=== PATIENT | female | born 1960 | race Caucasian/White ===

== ENCOUNTER 2020-06-21 09:27 | Outpatient (REF) | payer OTHER, SELFPAY | END 2020-06-21 09:28 | disposition home or self-care (01) | LOC: HO.LAB 09:27 | PROVIDERS: PCP Internal Medicine; Visit Provider Internal Medicine | DX: Z20.828 Contact with and (suspected) exposure to other viral communicable diseases (principal) | CPT/HCPCS: C9803; U0003 ==

== ENCOUNTER 2025-02-27 12:47 | Outpatient (AMB) | payer OTHER, SELFPAY ==
--- NOTE | 2025-02-27 12:54 | MHC.OFFVIS ---
Intake Visit Reasons: Follow up Allergies No Known Allergies Allergy (Unverified 03/29/20 17:32) HPI Comments Details: 64 y/o woman with bipolar do, depression, anxiety, HANNA On CPAP, and hypothyroidism who was here for left blepharaspasm. [facility] Medical History (Updated 02/27/25 @ 12:55 by Osvaldo Uribe MD) Blepharospasm Obesity Bipolar disorder HANNA on CPAP MCI (mild cognitive impairment) Assessment & Plan Assessment & Plan (1) Blepharospasm: Code(s): G24.5 - Blepharospasm Category: Medical Plan Impression: Left blepharospasm. Due to just on one side, MRI is ordered to r/o any focal etiology Rec: a: MRI brain to r/o left facial neuropathy b: Botox treatment Orders: Orders MR head/brain wo/w con Today G24.5 - Blepharospasm Medications: New onabotulinumtoxinA (cosmetic) (Botox Cosmetic) 50 units intramuscularly every 3 months; 1 ea 3RF Coding Level of Care Code Est Pt Level 4 (95215) Diagnoses Blepharospasm G24.5
--- OUTSIDE RECORDS SUMMARY | 2025-02-27 13:41 | XMS_ITS | Clinical Summary ---
Author Organization [facility] Address [address] [place] [address] Phone Care Team Providers Care Truck Headlight Assembler Name Role Phone Unavailable Primary Care Provider Unavailabl e Social History Tobacco Use Types Packs/Day Years Used Date Smoking Tobacco: Never Assessed Comments Unknown Sex and Gender Information Value Date Recorded Sex Assigned at Not on file Legal Sex Female 9:48 PM EDT Gender Identity Not on file Sexual Orientation Not on file Plan of Treatment Not on file Medical Devices Not on file Additional Source Comments The information contained in this document represents components of the legal health record. It is not the complete legal health record.[facility]
--- OUTSIDE RECORDS SUMMARY | 2025-02-27 13:41 | XMS_ITS ---
Author Name [facility] Organization Unknown Care Team Organization Name Specialty Phone Email Start Date End Da te [facility]ette [facility] 05/20/2022 02/29/2024
== END 2025-02-27 13:18 | disposition home or self-care (01) ==
LOC: HO.HSM 12:48
PROVIDERS: PCP Internal Medicine; Visit Provider Psychiatry & Neurology Neurology
DX: G24.5 Blepharospasm (principal)
CPT/HCPCS: 99214

== ENCOUNTER → 2025-03-10 10:38 | Outpatient (BNV) | payer OTHER, SELFPAY | PROVIDERS: Visit Provider Radiology Vascular & Interventional Radiology | DX: G24.5 Blepharospasm (principal) | CPT/HCPCS: 70553 ==

== ENCOUNTER 2025-03-10 10:50 | Outpatient (REF) | payer OTHER, SELFPAY ==
--- NOTE | ~2025-03-10 | MR_ITS ---
CLINICAL HISTORY: G24.5 - Blepharospasm --- Additional Notes or Special Instructions: r o left facial neuropathy MR Brain with and without gadolinium. High-resolution thin slice imaging performed through the IAC's and pituitary. Comparison: None provided Findings: No restricted diffusion. No intra-axial mass or hemorrhage. No midline shift. No hydrocephalus. Vascular flow voids are intact. There is no abnormal postcontrast enhancement. No cerebellopontine angle mass. No definite pituitary lesion. The infundibulum is midline. The orbits are normal. The sinuses and mastoid air cells are clear. No focal bone lesion. IMPRESSION: No acute findings. This document has been electronically signed by: Russell Fuentes MD on 03/11/2025 10:38:58
--- OUTSIDE RECORDS SUMMARY | 2025-03-10 11:30 | XMS_ITS | Clinical Summary ---
Author Organization [facility] Address [address] [place] [address] Phone Care Team Providers Care Taxi Driver Supervisor Name Role Phone Unavailable Primary Care Provider [...] It is not the complete legal health record.[facility]
== END 2025-03-10 10:51 | disposition home or self-care (01) ==
LOC: HO.MRI 10:50
PROVIDERS: Visit Provider Psychiatry & Neurology Neurology
DX: G24.5 Blepharospasm (principal)
CPT/HCPCS: 70553; A9585

== ENCOUNTER 2025-03-23 15:41 | Outpatient (AMB) | payer OTHER, SELFPAY ==
--- NOTE | 2025-03-23 16:04 | MHC.OFFVIS ---
Intake Visit Reasons: blepharospasm Allergies lurasidone (From Latuda) Adverse Reaction (Verified 03/20/25 12:24) Insomnia HPI Comments Details: 64 y/o woman with bipolar do, depression, anxiety, HANNA On CPAP, and hypothyroidism who was here for left blepharaspasm. She was here for Botox treatment. [facility] Medical History (Updated 03/27/25 @ 08:25 by Jillian Crowder MD) Diverticula of intestine Trigger finger High cholesterol Type II diabetes mellitus Teresa thyroiditis Blepharospasm Obesity Bipolar disorder HANNA on CPAP MCI (mild cognitive impairment) Surgical History (Updated 03/20/25 @ 11:48 by Farideh Felder RN) H/O foot surgery Hx of cholecystectomy Social History Household Members: Other Household Members Other:: Former Spouse Patient Tobacco Use Status: Never used Tobacco Do you have thoughts of harming others: None Physical Exam Neuro Other: Moderate left-sided facial and blepharospasm was noted. Office Procedures Botulinum toxin Injection Additional procedure code (CPT) needed (Blepharospasm) Office Meds onabotulinumtoxinA 200 unit solution for injection Performing Provider: Osvaldo Uribe MD Performing Location: [facility] Neurology and Sleep-Hol Administered by: Osvaldo Uribe MD on 03/27/25 16:18 Dose Route Admin Location Dispensed Lot Number Expiration Date [facility] [employer] Machine Operator 200 unit IM 200 units [id number] [employer]OTOX Total Dispensed Waste 200 units 0 % Assessment & Plan Assessment & Plan (1) Blepharospasm: Code(s): G24.5 - Blepharospasm Category: Medical Plan Impression: blepharospasm responsive to Botox treatment Recommendations: Botox treatment was done as per protocol Orders: Orders AMB Botulinum toxin Injection - Patient Supplied N/C 03/23/25 G24.5 - Blepharospasm Medications: Discontinued onabotulinumtoxinA (Botox) Discontinued Reason: Doctor's Order 100 units intramuscularly every 3 m; 1 ea 3RF Coding Level of Care Code Est Pt Level 3 (18121) Diagnoses Blepharospasm G24.5
--- OUTSIDE RECORDS SUMMARY | 2025-03-23 18:46 | XMS_ITS | Clinical Summary ---
Author Organization [facility] Address [address] [place] [address] Phone Care Team Providers Care Environmental Services Coordinator Name Role Phone Unavailable Primary Care Provider [...] It is not the complete legal health record.[facility]
== END 2025-03-23 16:31 | disposition home or self-care (01) ==
LOC: HO.HSM 15:42
PROVIDERS: PCP Internal Medicine; Visit Provider Psychiatry & Neurology Neurology
DX: G24.5 Blepharospasm (principal)

== ENCOUNTER → 2025-03-23 15:41 | Outpatient (BNVA) | payer OTHER, SELFPAY | PROVIDERS: PCP Internal Medicine; Visit Provider Psychiatry & Neurology Neurology | DX: G24.5 Blepharospasm (principal) | CPT/HCPCS: J0585 ==

== ENCOUNTER 2025-04-03 09:15 | Outpatient (RCR) | payer OTHER, SELFPAY ==
[2025-03-20 11:51] VITALS: BMI 34.3
[2025-03-20 11:52] VITALS: BP 100/68; PULSE 80; TEMP 37.3
--- NOTE | 2025-03-20 14:58 | PC.ADMIT ---
Patient is a 64 year old female who was referred to [facility] by her psychiatric provider secondary to increased depression and anxiety sxs. Patient is taking a leave of absence from work to work on her mental health. Patient reports stresses including work stresses and her ex whom she lives with who has been dx with [place]'s disease and dementia who she is taking care of. She stated while she is in [facility] she has health care providers coming to her home to take care of her ex. Supports include, My daughter, son, and Ryan helps once in a while I just started with a therapist last Thursday. Patient reports recent dx of Type II diabetes and is taking Metformin. Stated she checks BS every morning and they run anywhere from 90-110. Patient is alert and oriented x4. She is calm and cooperative. She presented with depressed mood and anxious affect. She denied SI, no HI. She was given a copy of her safety plan if needed. Medications updated with patient and patient's pharmacy. She reports taking medications as prescribed. Patient stated she was taken off Latuda as she was experiencing insomnia while on the medication and was put back on Olanzapine.
--- NOTE | 2025-03-22 15:54 | HO.PS.ADMBH ---
HPI Date of Service: 03/20/25 Chief Complaint: bipolar II Sources of Information: patient interviewed, chart reviewed and crisis/core team assessment reviewed HPI Narrative: Patient is , employed 64 yo female with history of Bipolar Disorder, DM2, HLD, Teresa thyroiditis, who was referred to [facility] by her outpatient psychiatrist for worsening mood, severe anxiety, panic attacks, low energy, poor sleep. She lives with her ex- and works as his personal development mentor who suffers from Abimael's dementia, which she notes is one of her primary stressors. She is also employed as a Behavioral resource tech at [employer] and is currently on leave.. She has been maintained on combination of citalopram, Wellbutrin, Zyprexa since 2006 when she was diagnosed with Bipolar II disorder. . Past Psychiatric History: No prior IPLOC, PHP, respite, detox/rehab admissions SA: denies SIB: denies Aggression or antisocial behaviors: denies Denies legal history Pertinent developmental hx: Previous diagnoses: history of post depression with of daughter Psychiatrist: Bita Moreno NP Therapist: Jerri GALLEGOS PCP: Shell PURVIS Previous trials: Zoloft, clonazepam, Latuda, since 2006 has been on olanzapine, citalopram, Wellbutrin CURRENT MEDICATIONS: Citalopram 40 mg daily Wellbutrin 150 mg daily Olanzapine 10 mg q.h.s. Atorvastatin 40 mg daily Levothyroxine 137 mcg Metformin 2000 mg [facility] Medical History (Updated 03/27/25 @ 08:25 by Jillian Crowder MD) Diverticula of intestine Trigger finger High cholesterol Type II diabetes mellitus Teresa thyroiditis Blepharospasm Obesity Bipolar disorder HANNA on CPAP MCI (mild cognitive impairment) Narrative: Diverticulosis Surgeries: foot surgery 2017, 3 x trigger finger release, 2 x carpal tunnel Seizures: denies Concussions/TBI: denies Ht: 5'4 Wt:198 lbs ALL: NKDA Surgical History (Updated 03/20/25 @ 11:48 by Farideh Felder RN) H/O foot surgery Hx of cholecystectomy Social History: Lives at home alone Daughter lives in [place], [place] Diagnostics Vital Signs (24Hr): BMI result Body Mass Index 34.3 Meds/Allergies Meds Home Medications ?Medication ?Instructions ?Recorded ?Confirmed ?Type bupropion HCl 150 mg 24 hr tablet, 150 mg PO DAILY 02/20/25 03/20/25 History extended release citalopram 40 mg tablet 40 mg PO DAILY 02/20/25 03/20/25 History metformin 500 mg tablet,extended 1,000 mg PO BID 02/20/25 03/20/25 History release 24 hr olanzapine 10 mg tablet 10 mg PO BEDTIME 02/20/25 03/20/25 History atorvastatin 40 mg tablet 40 mg PO DAILY 03/20/25 03/20/25 History cetirizine 5 mg tablet 5 mg PO DAILY 03/20/25 03/20/25 History clonazepam 0.5 mg tablet 0.5 - 1 mg PO DAILY PRN anxiety 03/20/25 03/20/25 History diphenhydramine HCl 50 mg/30 mL 50 mg PO BEDTIME 03/20/25 03/20/25 History oral liquid fluticasone propionate 50 1 spray intranasal BID 03/20/25 03/20/25 History mcg/actuation nasal spray,suspension levothyroxine 137 mcg tablet See Rx Instructions .Route .COMPLEX 03/20/25 03/20/25 History melatonin 5 mg tablet 7.5 mg PO BEDTIME PRN Insomnia 03/20/25 03/20/25 History Allergies Allergies Allergy/AdvReac Type Severity Reaction Status Date / Time lurasidone (From [facility]) AdvReac Insomnia Verified 03/20/25 12:24 Mental Status Exam Mental Status Exam Narrative: Alert, oriented, in no acute distress. Calm, cooperative, engaged. No psychomotor agitation or neurovegetative retardation. Eye contact maintained. Mood depressed, affect constricted. Speech normal. Thought process linear, coherent. Thought content related to stressors, transient hopelessness, denies SI or HI. No paranoia or delusional content elicited. No evidence of psychosis. Insight and judgment - fair but adequate. Assessment & Plan Assessment & Plan (1) Bipolar II disorder: Status: Acute Code(s): F31.81 - Bipolar II disorder (2) LYNDSEY (generalized anxiety disorder): Status: Acute Code(s): F41.1 - Generalized anxiety disorder Plan Admit to [facility] VS reviewed: afebrile, BP 100/68;?80 bpm continue olanzapine 10 mg qhs start olanzapine 2.5-5 mg qhs PRN sleep/kamlesh start olanzapine 1.25-2.5 BID qd prn agitation/anxiety continue regular medications for now Routine lab work as indicated EKG, routine for baseline QTc for medication considerations as indicated UDS as indicated MassPat reviewed Continue to monitor as per protocol Patient educated on: diagnosis and medication risk/benefits Informed Consent: understands Reason for continued partial hosp. stay Substantial Risk for: inability to function and med/psych decompensation Certification I certify that partial hospital treatment is medically necessary due to the symptoms and problems resulting from the patient's mental illness and the failure to treat the patient at the partial hospital level of care would likely result in the patient requiring inpatient psychiatric care which could not be prevented at a less intensive level of care. Time Spent With Patient Time: Total time managing care of this patient today _60___ minutes.
--- NOTE | 2025-03-23 14:43 | HO.PHP ---
Client case was reviewed and opened in teams.
--- NOTE | 2025-03-31 12:00 | P.PNPSP_ITS ---
Subjective Subjective Date of Service: 03/31/25 Reason For Visit: bipolar II Interim History: Patient seen for follow-up, anticipating discharge at the end of program today.? Reports improvement in mood and sleep. much better . Next psych appointment is 04/17. Reports no acute issues or concerns. Medication compliant, medications well- tolerated. Denies any adverse effects.? Mood is stable.? Denies any hopelessness or SI. Denies thoughts of harming self or others at this time. Denies any aggressive ideation or HI. Denies any paranoia or AH or VH. Sleep, appetite, energy stable. Mental Status Exam Mental Status Exam Narrative: Alert, oriented, in no acute distress. Calm, cooperative. Mood stable, affect appropriate. Speech normal. Thought process linear, coherent, more goal-d irected. Thought content related to stressors, future-oriented, denies any helplessness, hopelessness or SI.? No aggressive ideation or HI. No paranoia or delusional content elicited. No evidence of psychosis. Insight and judgment fair-good. Diagnostics Vital Signs (24Hr): BMI result Body Mass Index 34.3 Assessment & Plan Assessment & Plan (1) Bipolar II disorder: Status: Acute Code(s): F31.81 - Bipolar II disorder (2) LYNDSEY (generalized anxiety disorder): Status: Acute Code(s): F41.1 - Generalized anxiety disorder Plan Discharge from [facility] Continue regular medications? Refills sent to pharmacy Will defer further medication management to outpatient provider *Safety plan reviewed *Discharge diagnoses, treatment course, discharge plan have been reviewed with patient (including medication regime, medication management, potential side effects) as well as treatment rationale were also revisited *Discharge paperwork signed and given to patient, copy sent for scanning to chart Patient educated on: diagnosis and medication risk/benefits Informed Consent: understands Reason for contiued partial hosp. stay Substantial Risk for: stable for discharge Certification I certify that partial hospital treatment is medically necessary due to the symptoms and problems resulting from the patient's mental illness and the failure to treat the patient at the partial hospital level of care would likely result in the patient requiring inpatient psychiatric care which could not be prevented at a less intensive level of care. Total time managing care of this patient today _30___ minutes. Discharge Plan Discharge Attending provider: Jillian Crowder Medications: New olanzapine 5 mg tablet 5 mg PO BEDTIME PRN (Reason: insomnia/kamlesh) Qty: 30 0RF Continued diphenhydramine HCl 50 mg/30 mL Liquid 50 mg PO BEDTIME Rx Instructions: OTC melatonin 5 mg Tablet 7.5 mg PO BEDTIME PRN (Reason: Insomnia) Rx Instructions: Takes 1.5 tab at bedtime. Takes OTC. atorvastatin 40 mg tablet 40 mg PO DAILY levothyroxine 137 mcg tablet See Rx Instructions .ROUTE .COMPLEX Rx Instructions: TAKE 1 TABLET BY MOUTH THURSDAY THROUGH THURSDAY AND 2 TABLETS ON THURSDAY cetirizine 5 mg tablet 5 mg PO DAILY clonazepam 0.5 mg tablet 0.5 - 1 mg PO DAILY PRN (Reason: anxiety) Rx Instructions: TAKE 1-2 TABLETS BY MOUTH ONCE A DAY NEEDED FOR ANXIETY fluticasone propionate 50 mcg/actuation spray,suspension 1 spray intranasal BID citalopram 40 mg tablet 40 mg PO DAILY olanzapine 10 mg tablet 10 mg PO BEDTIME metformin 500 mg tablet extended release 24 hr 1,000 mg PO BID bupropion HCl 150 mg tablet extended release 24 hr 150 mg PO DAILY Changed olanzapine 2.5 mg tablet 2.5 mg PO DAILY PRN (Reason: agitation/anxiety) Qty: 30 0RF Stand Alone Forms: Patient Portal Discharge page Patient Education: Bipolar Disorder (ED), Bipolar Disorder (DC) Print Language: Danish
== END 2025-04-03 23:59 | disposition home or self-care (01) ==
LOC: HO.PHPA 09:15
PROVIDERS: Visit Provider Psychiatry & Neurology Psychiatry
DX: F31.81 Bipolar II disorder (principal); F41.1 Generalized anxiety disorder; Z79.899 Other long term (current) drug therapy
CPT/HCPCS: 90791; 90853

== ENCOUNTER 2025-05-08 08:03 | Outpatient (AMB) | payer OTHER, SELFPAY ==
--- OUTSIDE RECORDS SUMMARY | 2025-05-08 08:10 | XMS_ITS | Clinical Summary ---
Author Organization [facility] Address [address] [place] [address] Phone Care Team Providers Care Furnace Attendant Name Role Phone Unavailable Primary Care Provider [...] It is not the complete legal health record.[facility]
--- NOTE | 2025-05-08 08:11 | A.OFFVIS_ITS ---
Intake Visit Reasons: 6 weeks after botox Allergies lurasidone (From Latuda) Adverse Reaction (Verified 03/20/25 12:24) Insomnia HPI Comments Details: 64 y/o woman with bipolar do, depression, anxiety, HANNA On CPAP, and hypothyroidism who was here for left blepharaspasm. She is here for a routine neurological follow-up. She has been consistently monitored with MRI scans, the last of which occurred in March and showed no abnormalities. The patient understands her condition has been ongoing for 14 years and requires regular follow-ups every three months. She reports no current visual or swallowing problems. The next scheduled MRI is in July, consistent with her continued management plan. [facility] Medical History (Updated 05/08/25 @ 08:16 by Osvaldo Uribe MD) Diverticula of intestine Trigger finger High cholesterol Type II diabetes mellitus Teresa thyroiditis Blepharospasm Obesity Bipolar disorder HANNA on CPAP MCI (mild cognitive impairment) Surgical History (Updated 03/20/25 @ 11:48 by Farideh Felder RN) H/O foot surgery Hx of cholecystectomy Social History Household Members: Other Household Members Other:: Former Spouse Patient Tobacco Use Status: Never used Tobacco Review of Systems Narrative Constitutional:?No fever, chills, fatigue, weight loss, or night sweats. HEENT:?No headache, vision changes, hearing loss, nasal congestion, sore throat. Neurological:?No dizziness, syncope, seizures, numbness, tingling, weakness, tremors, memory loss. Psychiatric:?No anxiety, depression, mood swings, sleep disturbance, or hallucinations. Endocrine:?No heat/cold intolerance, polydipsia, polyuria, or hair/skin changes. Hematologic/Lymphatic:?No easy bruising, bleeding, or lymphadenopathy. Integumentary (Skin):?No rash, lesions, itching, or color changes. ? Physical Exam Neuro Other: Mental Status: Alert and oriented to person, place, and time. Normal attention. Normal spontaneous speech, fluency, and comprehension. No obvious issues with mood and memory. Affect is appropriate. Cranial Nerves: CN II: Visual guillermo full to confrontation, visual acuity intact. CN III, IV, : Pupils equal, round, reactive to light and accommodation. Extraocular movements are normal. CN V: Facial sensation is normal. CN VII: Facial movements symmetrical. CN VIII: Hearing intact to bedside conversation is normal. CN IX, X: Palate elevates symmetrically. CN XI: Shoulder shrug and head turn symmetrical. CN XII: Tongue midline without atrophy or fasciculations. Coordination: [id number] and [id number] testing normal. No dysmetria. Gait and Station: No obvious gait abnormality. No ataxia or instability. Extrapyramidal: Full facial expressions and blinking. No rigidity. Movements are appropriate with no tremor or abnormality. Speech: Normal; no dysarthria or tremor. Assessment & Plan Assessment & Plan (1) Blepharospasm: Comment: MRI brain [facility] at [facility] in Feb 2025: WNL Code(s): G24.5 - Blepharospasm Category: Medical Plan Impression: Left-sided blepharospasm treated with Botox. Last treatment was in March and she had good response to it without any complications and she was happy. Recommendations: Next Botox treatment in July. During this visit, I discussed with the patient her routine follow-up schedule for neurological care. We reviewed the results of the last MRI scan, which showed no abnormalities. Coding Level of Care Code Est Pt Level 4 (77303) Diagnoses Blepharospasm G24.5
== END 2025-05-08 08:18 | disposition home or self-care (01) ==
LOC: HO.HSM 08:04
PROVIDERS: PCP Internal Medicine; Visit Provider Psychiatry & Neurology Neurology
DX: G24.5 Blepharospasm (principal)
CPT/HCPCS: 99214